=== PATIENT | male | born 1985 | race Caucasian/White ===

== ENCOUNTER 2020-12-04 05:20 | Emergency (ER) | payer SELFPAY ==
[~2020-12-04] VITALS: Ht 172.7 cm; Wt 79.4 kg
[2020-12-04] MEDS ORDERED: DEXAMETHASONE 4 MG TABLET PO ONE (06:00)
--- NOTE | 2020-12-04 06:00 | NUR ---
Dr Sesay at bedside for MSE
[2020-12-04] MEDS ORDERED: DEXAMETHASONE 4 MG TABLET ONE (06:05)
[2020-12-04 06:08] LABS: HEMATOCRIT 43.7 % (36.7-47.1); MEAN CORPUSCULAR HEMOGLOBIN 28.4 uug (23.8-33.4); MEAN CORPUSCULAR VOLUME 83.9 fL (73.0-96.2); PLATELET COUNT (AUTO) 143 K/uL (152-348)
[2020-12-04 06:13] LABS: CREATININE 1.1 mg/dL (0.6-1.3); POTASSIUM 3.9 mmol/L (3.5-5.1)
--- NOTE | 2020-12-04 06:33 | NUR ---
Patient has been cleared for discharge. Written and verbal after care instructions given. COVID 19 isolation reinforced. Patient verbalizes understanding of instructions. Stressed follow up or return to ER for worsening s/s. Patient discharged to home in stable condition. Ambulated out of ED in steady gait.
[2020-12-04 06:36] VITALS: BP 118/68
== END 2020-12-04 06:37 | disposition home or self-care (01) ==
LOC: ER 05:20
DX: U07.1 COVID-19 (principal); J12.82 Pneumonia due to coronavirus disease 2019
CPT/HCPCS: 36415; 71045; 80048; 85025; 99284; J8540; A4663